=== PATIENT | male | born 1970 | race Native Hawaiian/Other Pacific Islander ===

== ENCOUNTER 2016-10-16 18:59 | Outpatient (CLI) | payer OTHER ==
[~2016-10-16 18:59] MED LIST: CELEXA10 MG PO; GABA100C2 PO; KLONOPIN2 MG PO; LISI10TA11 PO; SEROQUEL200 MG OR; TEGRETOL200 MG PO
== END 2016-10-16 19:26 | disposition short-term general hospital (02) ==
LOC: AMB 18:59
DX: E86.0 Dehydration (principal); R53.1 Weakness; F10.129 Alcohol abuse with intoxication, unspecified
CPT/HCPCS: A0425; A0427

== ENCOUNTER 2016-10-16 19:30 | Observation (INO) | payer OTHER ==
[~2016-10-16] VITALS: Ht 185.4 cm; Wt 78.7 kg
[2016-10-16 20:02] VITALS: BP 134/96; TEMP 98.2
[2016-10-16 21:35] VITALS: BP 147/108; TEMP 98.2
[2016-10-17] VITALS (7 sets, daily range): BP systolic 111–154; BP diastolic 71–108; TEMP 97.7–98.5; Ht 185.4 cm; Wt 78.7 kg
[2016-10-17 09:01] LABS: POTASSIUM 3.5 mmol/L (3.6-5.2); SODIUM 134 mmol/L (136-145)
[2016-10-17 13:23] LABS: PLATELET COUNT 36 K/uL (142-355)
[2016-10-18] VITALS: BP 125/82; TEMP 98.4
[2016-10-18 04:00] VITALS: BP 126/70; TEMP 98.5
[2016-10-18 06:19] LABS: SODIUM 139 mmol/L (136-145)
[2016-10-18 08:00] VITALS: BP 132/75; TEMP 97.8
[2016-10-18 09:01] LABS: PLATELET COUNT 52 K/uL (142-355)
[2016-10-18 12:00] VITALS: BP 162/86; TEMP 97.8
== END 2016-10-18 13:50 | disposition home or self-care (01) ==
LOC: ED 19:30 → MED/SURG 21:00
PROVIDERS: Emergency Medicine
DX: F10.239 Alcohol dependence with withdrawal, unspecified (principal); F41.8 Other specified anxiety disorders; H10.9 Unspecified conjunctivitis; F10.229 Alcohol dependence with intoxication, unspecified; Y90.8 Blood alcohol level of 240 mg/100 ml or more
CPT/HCPCS: 36415; 80053; 80307; 80320; 82607; 83735; 85007; 85027; 93005; 96365; 96366; 96374; 96375; 99220; 99283; G0378; G0479; J2060; J2405

== ENCOUNTER → 2017-11-15 21:18 | Outpatient (CLI) | payer OTHER | END | disposition E | LOC: AMB 21:18 ==